=== PATIENT | female | born 1955 | race Caucasian/White ===

== ENCOUNTER 2019-03-18 21:03 | Inpatient (IN) | payer MEDICARE, OTHER ==
[~2019-03-18] VITALS: Ht 167.6 cm; Wt 103.4 kg
[~2019-03-18 21:03] MED LIST: MAG355OR14 PO; MULT-53 PO
[2019-03-18] MEDS ORDERED: morphine 4 MG/ML VIAL IV STA (23:19)
[2019-03-18] MEDS ORDERED: ONDANSETRON 4 MG INJ IV STA (23:19)
[2019-03-19] VITALS (23 sets, daily range): BP systolic 83–145; BP diastolic 68–103; PULSE 102–110; RESP 17–27; Ht 167.6 cm; Wt 103.4 kg
[2019-03-19] MEDS ORDERED: SOD CHLORIDE 0.9% 1,000 ML IV SCH (00:28)
[2019-03-19] MEDS ORDERED: DOCUSATE SODIUM 100 MG CAP PO PRN (00:30)
[2019-03-19] MEDS ORDERED: MAGNESIUM HYDROXIDE 30ML CUP PO PRN (00:30)
[2019-03-19] MEDS ORDERED: ONDANSETRON 4 MG INJ IV PRN ×2 (00:30)
[2019-03-19] MEDS ORDERED: ACETAMINOPHEN 325 MG TAB PO PRN ×2 (00:30)
[2019-03-19] MEDS ORDERED: NACL 0.9% 3 ML SYG IV SCH (00:30)
[2019-03-19] MEDS: PANTOPRAZOLE (EC) 40 MG TAB PO SCH (06:14)
[2019-03-19] MEDS ORDERED: HEPARIN 5,000 UNIT/1 ML VIAL SC SCH (09:00)
[2019-03-19] MEDS: THIAMINE 100 MG TAB PO SCH (09:51)
[2019-03-19] MEDS: METOPROLOL 25 MG TAB PO SCH ×2 (09:52→21:11)
[2019-03-19] MEDS ORDERED: BARIUM SULF 2% 450 ML BTL (BERRY SMOOTHIE) PO ONE (13:00)
[2019-03-19] MEDS ORDERED: NA POLYST SULFON 15 GM/60 ML BTL PO ONE (14:30)
[2019-03-19] MEDS: SODIUM BICARBONATE (IV ADD) 50 MEQ in DEXTROSE 5%-0.45% NACL 950 ML IV SCH (16:16)
[2019-03-19] MEDS ORDERED: HEPARIN 1000 UNITS/ML 10 ML INJ IV PRN ×4 (17:00→17:30)
[2019-03-19] MEDS ORDERED: HEPARIN 1000 UNITS/ML 10 ML INJ IV ONE ×2 (17:00→17:30)
[2019-03-19] MEDS ORDERED: HEPARIN 25000 UNITS/250 ML 250 ML IV SCH (17:00)
[2019-03-19] MEDS ORDERED: IOHEXOL 14.3 MG(I)/ML (ADULT) BTL PO ONE (17:30)
[2019-03-19] MEDS ORDERED: SOD CHLORIDE 0.9% 100 ML ONE ×2 (17:39→18:06)
[2019-03-19] MEDS ORDERED: IOHEXOL 100 ML ONE ×2 (17:39→18:06)
[2019-03-19] MEDS ORDERED: IOHEXOL 350MG/ML 50 ML BTL ONE ×2 (17:39→18:06)
[2019-03-19] MEDS: CEFEPIME 1GM/50 ML (PMX) 50 ML IVPB SCH (21:11)
[2019-03-20] VITALS (48 sets, daily range): BP systolic 71–104; BP diastolic 50–85; PULSE 108–113; RESP 16–31
[2019-03-20] MEDS: SODIUM BICARBONATE (IV ADD) 50 MEQ in DEXTROSE 5%-0.45% NACL 950 ML IV SCH ×2 (06:36→17:36)
[2019-03-20] MEDS: PANTOPRAZOLE (EC) 40 MG TAB PO SCH (06:39)
[2019-03-20] MEDS ORDERED: NA POLYST SULFON 15 GM/60 ML BTL PO ONE (08:00)
[2019-03-20] MEDS: CEFEPIME 1GM/50 ML (PMX) 50 ML IVPB SCH ×2 (08:23→20:18)
[2019-03-20] MEDS: METOPROLOL 25 MG TAB PO SCH ×2 (08:23→20:20)
[2019-03-20] MEDS: THIAMINE 100 MG TAB PO SCH (08:29)
[2019-03-21] VITALS (73 sets, daily range): BP systolic 37–124; BP diastolic 15–105; PULSE 98–147; RESP 15–35
[2019-03-21] MEDS: SODIUM BICARBONATE (IV ADD) 50 MEQ in DEXTROSE 5%-0.45% NACL 950 ML IV SCH (03:01)
[2019-03-21] MEDS: PANTOPRAZOLE (EC) 40 MG TAB PO SCH (05:06)
[2019-03-21] MEDS: THIAMINE 100 MG TAB PO SCH (09:00)
[2019-03-21] MEDS: METOPROLOL 25 MG TAB PO SCH ×2 (09:00→20:54)
[2019-03-21] MEDS: CEFEPIME 1GM/50 ML (PMX) 50 ML IVPB SCH (09:19)
[2019-03-21] MEDS: SODIUM BICARBONATE (IV ADD) 75 MEQ in DEXTROSE 5%-0.45% NACL 925 ML IV SCH ×2 (09:19→20:53)
[2019-03-21] MEDS ORDERED: NORepinephrine 8MG/250 ML (PMX 250 ML ONE (11:04)
[2019-03-21] MEDS ORDERED: LACTATED RINGER'S 1,000 ML IV ONE (11:30)
[2019-03-21] MEDS ORDERED: PROPOFOL 100 ML ONE (11:40)
[2019-03-21] MEDS: NORepinephrine 8MG/250 ML (PMX 250 ML IV SCH ×2 (11:48→18:37)
[2019-03-21] MEDS: PROPOFOL 100 ML IV SCH ×2 (12:03→23:52)
[2019-03-21] MEDS: PHENYLephrine 20MG IN 250 ML 250 ML IV SCH ×4 (15:04→19:05)
[2019-03-21] MEDS: NORepinephrine 32 MG in DEXTROSE 5% 218 ML IV SCH ×2 (19:44→20:58)
[2019-03-21] MEDS ORDERED: PHENYLephrine 20MG IN 250 ML 250 ML ONE (19:56)
[2019-03-21] MEDS ORDERED: DOPamine-D5W 1.6 MG/ML 250 ML ONE (20:14)
[2019-03-21] MEDS ORDERED: DOPamine 1,600 MG in DEXTROSE 5% 210 ML IV SCH (20:30)
[2019-03-21] MEDS: PHENYLephrine 80 MG in DEXTROSE 5% 242 ML IV SCH ×2 (20:59→21:16)
[2019-03-22] VITALS: BP 57/46; PULSE 120; RESP 30
[2019-03-22 00:15] VITALS: BP 60/42; PULSE 109; RESP 32
[2019-03-22 00:30] VITALS: PULSE 0; RESP 9
[2019-03-22 00:45] VITALS: PULSE 0; RESP 18
[2019-03-22] MEDS ORDERED: PANTOPRAZOLE 40 MG INJ IV SCH (06:00)
[2019-03-22] MEDS ORDERED: CEFEPIME 2GM/50 ML IVPB SCH (09:00)
== END 2019-03-22 00:35 | disposition expired | DRG 640 ==
LOC: E/R 21:03 → 6WM 03-19 00:03 → ICU 03-19 14:20
PROVIDERS: ADMIT Internal Medicine; ATTEND Internal Medicine
PROC: 4A133R1 Monitoring of Arterial Saturation, Peripheral, Percutaneous Approach (ICD-10-PCS; 2019-03-19)
PROC: 0BH17EZ Insertion of Endotracheal Airway into Trachea, Via Natural or Artificial Opening (ICD-10-PCS; principal; 2019-03-21)
PROC: 5A1935Z Respiratory Ventilation, Less than 24 Consecutive Hours (ICD-10-PCS; 2019-03-21)
PROC: 06HM33Z Insertion of Infusion Device into Right Femoral Vein, Percutaneous Approach (ICD-10-PCS; 2019-03-21)
DX: E87.1 Hypo-osmolality and hyponatremia (principal); G92 Toxic encephalopathy; J96.21 Acute and chronic respiratory failure with hypoxia; J69.0 Pneumonitis due to inhalation of food and vomit; N17.9 Acute kidney failure, unspecified; F10.288 Alcohol dependence with other alcohol-induced disorder; Q21.0 Ventricular septal defect; E87.2 Acidosis; R57.8 Other shock; E86.0 Dehydration; Z66 Do not resuscitate; I12.9 Hypertensive chronic kidney disease with stage 1 through stage 4 chronic kidney disease, or unspecified chronic kidney disease; N18.9 Chronic kidney disease, unspecified; I27.20 Pulmonary hypertension, unspecified; K70.30 Alcoholic cirrhosis of liver without ascites; I73.9 Peripheral vascular disease, unspecified; R00.0 Tachycardia, unspecified; F20.9 Schizophrenia, unspecified; R91.8 Other nonspecific abnormal finding of lung field; D75.1 Secondary polycythemia; Z87.891 Personal history of nicotine dependence; Z88.0 Allergy status to penicillin
CPT/HCPCS: 31500; 36415; 36600; 70450; 71045; 71250; 71275; 74177; 76775; 80053; 80307; 81001; 82105; 82803; 82962; 83605; 83690; 83735; 83880; 84100; 84439; 84443; 84484; 85025; 85049; 85610; 85670; 85730; 93005; 93306; 93308; 93922; 93970; 94002; 94003; 94770; 96374; 96375; J0692; J1265; J1644; J2270; J2370; J2405; J7030; J7042; J7070; J7120; Q9967